=== PATIENT | female | born 1975 | race American Indian/Alaskan Native ===

== ENCOUNTER 2019-01-21 11:35 | Emergency (ER) | payer SELFPAY ==
--- NOTE | 2019-01-21 11:49 | Emergency Department Report ---
Blank Doc - Documentation Documentation: This is a 43-year-old female that presents with dysuria. Denies any vaginal d ischarge. This initial assessment/diagnostic orders/clinical plan/treatment(s) is/are subject to change based on patient's health status, clinical progression and re- assessment by fellow clinical providers in the ED. Further treatment and workup at subsequent clinical providers discretion. Patient/guardians urged not to elope from the ED as their condition may be serious if not clinically assessed and managed. Initial orders include: 1- Patient sent to [facility] for further evaluation and treatment 2- UA
[2019-01-21 12:52] LABS: Bacteria,Urine 4+ /HPF (Negative); Bilirubin,Urine NEG (Negative); Blood,Urine NEG (Negative); Color,Urine Amber (Yellow); Mucus,Urine 1+ /HPF; Protein,Urine <15 mg/dL mg/dL (Negative)
[2019-01-21 12:53] LABS: HCG Qualitative,Urine Negative (Negative)
--- NOTE | 2019-01-21 14:23 | Emergency Department Report ---
ED Female HPI - General Chief complaint: Urogenital-Female Stated complaint: UTI/BLOOD PRESSURE Time Seen by Provider: 01/21/19 11:47 Source: patient Mode of arrival: Ambulatory Limitations: No Limitations - History of Present Illness Initial comments: 23-year-old female presents to ED with complaint of possible UTI. Patient stated she has been having dysuria, urinary frequency 5 days. Patient states feels similar to when she had a UTI before. Denies abdominal pain, fever, vomiting, vaginal discharge. Patient also requesting refill on metoprolol, ran out 2 days ago. MD Complaint: dysuria -: days(s) (5) Severity: mild Consistency: constant Improves with: none Worsens with: urination Are you Now?: No Associated Symptoms: denies: vaginal bleeding, abdominal pain, nausea/vomiting, fever/chills - Related Data Sexually active: Yes Previous Rx's Medication Instructions Recorded Last Taken Type Fluconazole [Diflucan] 150 mg PO ONCE #1 tablet 01/21/19 Unknown Rx Metoprolol [Lopressor TAB] 100 mg PO BID #60 tablet 01/21/19 Unknown Rx Phenazopyridine [Pyridium] 200 mg PO TID #6 tab 01/21/19 Unknown Rx Sulfamethoxazole/Trimethoprim 1 each PO BID #6 tablet 01/21/19 Unknown Rx [Bactrim DS TAB] Allergies Allergy/AdvReac Type Severity Reaction Status Date / Time No Known Allergies Allergy Unverified 01/21/19 11:39 ED Review of Systems ROS: Stated complaint: UTI/BLOOD PRESSURE Other details as noted in HPI Comment: All other systems reviewed and negative Constitutional: denies: chills, fever Gastrointestinal: denies: abdominal pain, nausea, vomiting Genitourinary: dysuria, frequency. denies: discharge ED Past Medical Hx - Past Medical History Previous Medical History?: Yes Hx Hypertension: Yes - Surgical History Past Surgical History?: Yes Additional Surgical History: Parital hysterectomy - Social History Smoking Status: Never Smoker Substance Use Type: None - Medications Home Medications: Home Medications Medication Instructions Recorded Confirmed Last Taken Type Fluconazole [Diflucan] 150 mg PO ONCE #1 tablet 01/21/19 Unknown Rx Metoprolol [Lopressor TAB] 100 mg PO BID #60 tablet 01/21/19 Unknown Rx Phenazopyridine [Pyridium] 200 mg PO TID #6 tab 01/21/19 Unknown Rx Sulfamethoxazole/Trimethoprim 1 each PO BID #6 tablet 01/21/19 Unknown Rx [Bactrim DS TAB] ED Physical Exam - General Limitations: No Limitations General appearance: alert, in no apparent distress - Head Head exam: Present: atraumatic, normocephalic - Eye Eye exam: Present: normal appearance - ENT ENT exam: Present: mucous membranes moist - Neck Neck exam: Present: normal inspection - Respiratory Respiratory exam: Present: normal lung sounds bilaterally. Absent: respiratory distress - Cardiovascular Cardiovascular Exam: Present: regular rate, normal rhythm - GI/Abdominal GI/Abdominal exam: Present: soft. Absent: distended, tenderness - Extremities Exam Extremities exam: Present: normal inspection - Neurological Exam Neurological exam: Present: alert, oriented X3 - Psychiatric Psychiatric exam: Present: normal affect, normal mood - Skin Skin exam: Present: warm, dry, intact, normal color ED Course Vital Signs 01/21/19 01/21/19 11:49 13:40 Temperature 98.8 F Pulse Rate 78 Respiratory 16 16 Rate Blood Pressure 186/128 O2 Sat by Pulse 100 Oximetry ED Medical Decision Making - Differential Diagnosis UTI Critical care attestation.: If time is entered above; I have spent that time in minutes in the direct care of this critically ill patient, excluding procedure time. ED Disposition Clinical Impression: UTI (urinary tract infection) Disposition: - TO HOME OR SELFCARE Is pt being admited?: No Condition: Stable Instructions: Urinary Tract Infection in Women (ED) Prescriptions: Sulfamethoxazole/Trimethoprim [Bactrim DS TAB] 1 each PO BID #6 tablet Fluconazole [Diflucan] 150 mg PO ONCE #1 tablet Metoprolol [Lopressor TAB] 100 mg PO BID #60 tablet Phenazopyridine [Pyridium] 200 mg PO TID #6 tab Referrals: PRIMARY CARE,MD [Primary Care Provider] - 3-5 Days Time of Disposition: 14:23
[2019-01-21 14:36] VITALS: BP 165/99
== END 2019-01-21 14:38 | disposition home or self-care (01) ==
LOC: ED 11:35
DX: N39.0 Urinary tract infection, site not specified (principal); I10 Essential (primary) hypertension; Z90.710 Acquired absence of both cervix and uterus
CPT/HCPCS: 81001; 81025; 99283

== ENCOUNTER 2019-04-17 20:06 | Emergency (ER) | payer OTHER ==
[2019-04-17] MEDS ORDERED: NORCO 5/325 PO ONE (20:47)
[2019-04-17] MEDS ORDERED: XYLOCAINE 2% INFILTRATI ONE (20:47)
--- NOTE | 2019-04-17 20:48 | Event Note ---
ED Screening Note ED Screening Note: ABSCESS TO BACK NEEDS ID FOR 1 WEEK HTN ON METOP P HYSTERECTOMY 2010 This initial assessment/diagnostic orders/clinical plan/treatment(s) is/are subject to change based on patients health status, clinical progression and re- assessment by fellow clinical providers in the ED. Further treatment and workup at subsequent clinical providers discretion. Patient/guardian urged not to elope from the ED as their condition may be serious if not clinically assessed and managed. Initial orders include:
[2019-04-18] MEDS ORDERED: XYLOCAINE 2% INFILTRATI ONE (02:33)
[2019-04-18] MEDS ORDERED: NORCO 5/325 ONE (02:33)
[2019-04-18] MEDS ORDERED: ULTRAM PO ONE (02:49)
--- NOTE | 2019-04-18 03:37 | Emergency Department Report ---
Abscess Boil HPI - HPI Chief Complaint: Skin/Abscess/Foreign Body Stated Complaint: RISEN ON BACK/PAIN Time Seen by Provider: 04/17/19 20:46 Location: Back Severity: Mild History: Yes Pain, Yes Previous History, No Fever, No Purulent Drainage, No Numbness, No Foreign Body, No Insect Bite Addl Reference Text: pt presents for upper back abscess 1x1 cm x 4 months Home Medications: Previous Rx's Medication Instructions Recorded Last Taken Type Fluconazole [Diflucan] 150 mg PO ONCE #1 tablet 01/21/19 Unknown Rx Metoprolol [Lopressor TAB] 100 mg PO BID #60 tablet 01/21/19 Unknown Rx Phenazopyridine [Pyridium] 200 mg PO TID #6 tab 01/21/19 Unknown Rx Sulfamethoxazole/Trimethoprim 1 each PO BID #6 tablet 01/21/19 Unknown Rx [Bactrim DS TAB] Ibuprofen [Motrin 800 MG tab] 800 mg PO Q8HR PRN #30 tablet 04/18/19 Unknown Rx cephALEXin [Keflex] 500 mg PO Q8HR 10 Days #30 cap 04/18/19 Unknown Rx Allergies/Adverse Reactions: Allergies Allergy/AdvReac Type Severity Reaction Status Date / Time No Known Allergies Allergy Verified 04/17/19 20:50 ED Review of Systems ROS: Stated complaint: RISEN ON BACK/PAIN Other details as noted in HPI Constitutional: denies: chills, fever Eyes: as per HPI ENT: denies: ear pain, throat pain Respiratory: denies: cough, shortness of breath, wheezing Cardiovascular: denies: chest pain, palpitations Endocrine: no symptoms reported Gastrointestinal: denies: abdominal pain, nausea, diarrhea Genitourinary: denies: urgency, dysuria, discharge Musculoskeletal: denies: back pain, joint swelling, arthralgia Skin: other (abscess upper back ) Neurological: denies: headache, weakness, paresthesias Psychiatric: denies: anxiety, depression Hematological/Lymphatic: denies: easy bleeding, easy bruising ED Past Medical Hx - Past Medical History Previous Medical History?: Yes Hx Hypertension: Yes - Surgical History Past Surgical History?: Yes Additional Surgical History: Parital hysterectomy - Social History Smoking Status: Never Smoker Substance Use Type: None - Medications Home Medications: Home Medications Medication Instructions Recorded Confirmed Last Taken Type Fluconazole [Diflucan] 150 mg PO ONCE #1 tablet 01/21/19 Unknown Rx Metoprolol [Lopressor TAB] 100 mg PO BID #60 tablet 01/21/19 Unknown Rx Phenazopyridine [Pyridium] 200 mg PO TID #6 tab 01/21/19 Unknown Rx Sulfamethoxazole/Trimethoprim 1 each PO BID #6 tablet 01/21/19 Unknown Rx [Bactrim DS TAB] Ibuprofen [Motrin 800 MG tab] 800 mg PO Q8HR PRN #30 tablet 04/18/19 Unknown Rx cephALEXin [Keflex] 500 mg PO Q8HR 10 Days #30 cap 04/18/19 Unknown Rx ED Abscess Boil Physical Exam - Exam General: Vital signs noted. No distress. Alert and acting appropriately. Size: 1 cm Exam: Yes Tenderness, Yes Fluctuance, Yes Surrounding Cellulites/Erythema, Yes Normal Neurologic Exam, Yes Normal Circulation, No Lymphangitis, No Crepitation, No Heart Murmur Exam: upper back abscess 1x1 , mild erythema, fluctuant, no fever no drainage noted. I & D Note - I & D Note I & D Note: upper back abscess 1x1 , mild erythema, fluctuant, no fever no drainage noted. site cleaned with betadine solution , anesthesia with 1% lidocaine plain, incision with 11 blade scaple, scant purulent output wound irrigate wtih 10 cc sterile saline, all bleeding is controlled sterile dressing applied pt tolerated procedure with minimal distress pt given wound care instructions verbalized agreement and understanding of same. ED Course Vital Signs 04/17/19 04/18/19 20:46 02:32 Temperature 99.1 F Pulse Rate 78 Respiratory 18 18 Rate Blood Pressure 168/111 O2 Sat by Pulse 100 Oximetry Critical care attestation.: If time is entered above; I have spent that time in minutes in the direct care of this critically ill patient, excluding procedure time. ED Medical Decision Making - Medical Decision Making midl back abscess for I&d see procedure note, all bleeding is controlled pt tolerated procedure with minimal distress. pt dc'd to home in stable condition at this time. ED Disposition Clinical Impression: Abscess of back Disposition: DC-01 TO HOME OR SELFCARE Is pt being admited?: No Does the pt Need Aspirin: No Condition: Stable Instructions: Abscess (ED) Prescriptions: cephALEXin [Keflex] 500 mg PO Q8HR 10 Days #30 cap Ibuprofen [Motrin 800 MG tab] 800 mg PO Q8HR PRN #30 tablet PRN Reason: pain Referrals: WENDY EDGE MD [Primary Care Provider] - 3-5 Days Forms: Work/School Release Form(ED) Time of Disposition: 03:41
[2019-04-18 08:05] VITALS: BP 150/78
== END 2019-04-18 04:00 | disposition home or self-care (01) ==
LOC: ED 20:06
DX: L02.212 Cutaneous abscess of back [any part, except buttock and flank] (principal); I10 Essential (primary) hypertension; Z90.711 Acquired absence of uterus with remaining cervical stump